=== PATIENT | male | born 1970 | race Caucasian/White ===

== ENCOUNTER 2018-03-28 08:08 | Observation (INO) | payer OTHER ==
--- NOTE | 2018-03-28 08:37 | ED ---
Palpitations / Dysrhythmia - HPI Summary HPI Summary: This pt is a 47 y/o male presenting to [facility] c/o palpitations this morning. Pt reports he has had 3 episodes of palpitations, characterized as fluttering. Pt states his palpitations began in the beginning of deer season, around January. He notes during the first episode he was clearing brush when he became overheated and felt exhausted and had fluttering. He notes his fluttering resolved on its own. His second episode was 1 week ago when he had worse fluttering that lasted about 5 minutes. Pt states he took this aspirin that day during the day and night. Today in the morning pt notes he was lying in bed and felt fluttering that is rated as "not mild" in intensity. Additionally today he had tightness in his neck and felt "ill." Today's episode lasted about 30 minutes today and had no LOC but he reports "but I close to it." Pt notes "I get the shakes a little bit." Denies hx of anxiety. He denies chest pain, SOB, nausea, vomiting, abd pain. Pt currently reports his fluttering has resolved. 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 PMHx DVT from injury on leg. Denies any past stress tests. He does not take medications on a daily basis. - History of Current Complaint Time Seen by Provider: 03/28/18 08:14 Hx Obtained From: Patient Onset/Duration: Sudden Onset, Resolved Timing: Intermittent Episodes Lasting: - one episode lasting 30 min today Severity Initially: Moderate Severity Currently: None Character: Fluttering Aggravating: Nothing Alleviating: Nothing Associated Signs & Symptoms: Negative - Allergy/Home Medications Allergies/Adverse Reactions: Allergies Allergy/AdvReac Type Severity Reaction Status Date / Time MS Hydrocodone [From Vicodin] Allergy Unknown Verified 10/18/15 10:58 Reaction Details MS Latex [Latex] Allergy Unknown Verified 10/18/15 10:58 Reaction Details MS Levofloxacin Allergy Itching Verified 10/18/15 10:58 [From Levaquin] MS Prednisone [Prednisone] Allergy Unknown Verified 10/18/15 10:58 Reaction Details MS Sulfate [Sulfate] Allergy Unknown Verified 10/18/15 10:58 Reaction Details PMH/Surg Hx/FS Hx/Imm Hx Endocrine/Hematology History: Denies: Hx Diabetes, Hx Thyroid Disease Cardiovascular History: Reports: Hx Deep Vein Thrombosis - 02/05/14 L leg Denies: Hx Congestive Heart Failure, Hx Hypertension Respiratory History: Denies: Hx Asthma, Hx Chronic Obstructive Pulmonary Disease (COPD) GI History: Reports: Other GI Disorders - Acid Reflux Denies: Hx Ulcer History: Denies: Hx Renal Disease Musculoskeletal History: Reports: Other Musculoskeletal History - L knee ligament tears - Surgical History Surgery Procedure, Year, and Place: TOES, TONSILLECTOMY. left knee repair Infectious Disease History: No Infectious Disease History: Denies: Hx Clostridium Difficile, Hx Hepatitis, Hx Human Immunodeficiency Virus (HIV), Hx of Known/Suspected MRSA, Hx Shingles, Hx Tuberculosis, Hx Known/ Suspected VRE, Hx Known/Suspected VRSA, History Other Infectious Disease, Traveled Outside the [place] in Last 30 Days - Family History Known Family History: Positive: Hypertension - Social History Alcohol Use: Occasionally Substance Use Type: Reports: None Smoking Status (MU): Never Smoked Tobacco Review of Systems Negative: Fever, Chills Positive: Palpitations. Negative: Chest Pain Negative: Shortness Of Breath Negative: Vomiting, Nausea Musculoskeletal: Other - POS: tightness in the neck All Other Systems Reviewed And Are Negative: Yes Physical Exam - Summary Physical Exam Summary: Appearance: Well appearing, no pain distress Skin: warm, dry, reflects adequate perfusion Head/face: normal Eyes: EOMI, MARY ENT: normal Neck: supple, nontender Respiratory: CTA, breath sounds present Cardiovascular: RRR, pulses symmetrical Abdomen: nontender, soft Bowel: present Musculoskeletal: normal, strength/ROM intact Neuro: normal, sensory motor intact, A&Ox3 Triage Information Reviewed: Yes Vital Signs On Initial Exam: Initial Vitals Temp Pulse Resp BP Pulse Ox 98.7 F 87 22 148/99 99 03/28/18 08:16 03/28/18 08:16 03/28/18 08:16 03/28/18 08:16 03/28/18 08:16 Vital Signs Reviewed: Yes Diagnostics - Vital Signs Vital Signs Temp Pulse Resp BP Pulse Ox 03/28/18 08:16 98.7 F 87 22 148/99 99 - Laboratory Result Diagrams: 03/28/18 08:37 03/28/18 08:37 Lab Statement: Any lab studies that have been ordered have been reviewed, and results considered in the medical decision making process. - Radiology chest XR Radiology Interpretation Completed By: Radiologist Summary of Radiographic Findings: IMPRESSION: No evidence for acute disease. Dr. Chavez has reviewed this report. - EKG 08:31 Cardiac Rate: NL - at 80 bpm EKG Rhythm: Sinus Rhythm Summary of EKG Findings: No acute changes Course/Dx - Course Assessment/Plan: Pt is a 47 y/o male presenting to [facility] c/o palpitations this morning. Pt reports he has had 3 episodes of palpitations, characterized as fluttering. Pt states his palpitations began in the beginning of , around January. He notes during the first episode he was clearing brush when he became overheated and felt exhausted and had fluttering. He notes his fluttering resolved on its own. His second episode was 1 week ago when he had worse fluttering that lasted about 5 minutes. Pt states he took this aspirin that day during the day and night. Today in the morning pt notes he was lying in bed and felt fluttering that is rated as "not mild" in intensity. Additionally today he had tightness in his neck and felt "ill." Today's episode lasted about 30 minutes today and had no LOC but he reports "but I close to it. " Pt notes "I get the shakes a little bit." Denies hx of anxiety. He denies chest pain, SOB, nausea, vomiting, abd pain. Blood work, chest XR, and EKG were obtained. Chest XR shows no evidence for acute disease. EKG shows normal sinus rhythm at 80 bpm. I discussed the case with Dr. Groves, hospitalist, who accepted the pt for admission. - Diagnoses Differential Diagnosis/HQI/PQRI: Positive: Coronary Artery Disease, Other - ni/ unsatble angina/palpitations Provider Diagnoses: Chest pain, rule out acute myocardial infarction, Palpitations - Physician Notifications Discussed Care Of Patient With: Nissa Groves - hospitalist Time Discussed With Above Provider: 11:10 Instructed by Provider To: Admit As Inpatient Discharge - Sign-Out/Discharge Documenting (check all that apply): Patient Departure - Admit to [facility] - Discharge Plan Condition: Stable Disposition: ADMITTED TO [facility] Referrals: Ebony Rob [Primary Care Provider] - - Billing Disposition and Condition Condition: STABLE Disposition: Admitted to [facility] - Attestation Statements Document Initiated by Scribe: Yes Documenting Scribe: Linsey Archer Provider For Whom Scribe is Documenting (Include Credential): Estuardo Chavez MD Scribe Attestation: I, Linsey Archer, scribed for Estuardo Chavez MD on 03/28/18 at 1213. Scribe Documentation Reviewed: Yes Provider Attestation: The documentation as recorded by the Linsey sanchez accurately reflects the service I personally performed and the decisions made by me, Estuardo Chavez MD Status of Scribe Document: Viewed
[2018-03-28 09:03] LABS: ABS Basophils 0.1 10^3/ul (0-0.2); ABS Eosinophils 0.2 10^3/ul (0-0.6); ABS Lymphocytes 1.5 10^3/ul (1.0-4.8); ABS Monocytes 0.5 10^3/ul (0-0.8); ABS Neutrophils 4.7 10^3/ul (1.5-7.7); ABS Nucleated RBC 0 10^3/ul; Eosinophil % 2.3 %; Hematocrit 47 % (42-52); Hemoglobin 16.2 g/dl (14.0-18.0); Lymphocyte % 21.9 %; Mean Corpuscular HGB Conc 34 g/dl (31-36); Mean Corpuscular Hemoglobin 29 pg (27-31); Mean Corpuscular Volume 83 fL (80-94); Mean Platelet Volume 6.8 fL (7.4-10.4); Nucleated Red Blood Cells % 0.3; Platelet Count 319 10^3/ul (150-450); Red Blood Count 5.67 10^6/ul (4.00-5.40); Red Cell Distribution Width 14 % (10.5-15)
[2018-03-28 09:18] LABS: EGFR Non-African American 88.6 (>60)
[2018-03-28] MEDS ORDERED: Acetaminophen TAB* 325 MG PO PRN (12:26)
[2018-03-28] MEDS: Enoxaparin(*) 40 MG/0.4 ML SYR SUBCUT SCH (14:29)
--- NOTE | 2018-03-28 17:08 | ECHO ---
Patient: ERIC TAN [facility] Rec#: [id number] : 1970 Date: 03/28/2018 Age: 47y Height: 196 cm / 77.2 in Weight: 114 kg / 251.3 lbs Sex: M BSA: 2.47 Room#: 446 Admit Date#: 03/28/2018 Type: Inpatient Referring: Cherry Cordero Reading: Arleth Thacker MD Binder Cutter Hand: Aditi Phipps,JHONATANCS,RDMS CC: VASU Farris Transthoracic Echocardiogram Indication: CP BP: 143/96 HR: 73 Rhythm: NSR Findings History: Palpitations, DVT/PE Technical Comments: The study quality is good. Left Ventricle: The left ventricular chamber size is mildly dilated. Mild concentric left ventricular hypertrophy is observed. There is normal left ventricular systolic function. The estimated ejection fraction is 55-60%. There is no consistent Doppler evidence of clinically significant diastolic dysfunction. Left Atrium: The left atrial chamber size is normal. Right Ventricle: The right ventricular chamber size and systolic function are within normal limits. Right Atrium: The right atrial cavity size is normal. Aortic Valve: The aortic valve is trileaflet. There is no evidence of aortic valve thickening. Systolic excursion of the aortic valve is normal. There is no evidence of aortic regurgitation. There is no evidence of aortic stenosis. Mitral Valve: The mitral valve leaflets appear normal. There is no evidence of mitral regurgitation. There is no evidence of mitral stenosis. Tricuspid Valve: The tricuspid valve leaflets are normal. There is no evidence of tricuspid valve regurgitation. Unable to estimate the right ventricular systolic pressure. Pulmonic Valve: The pulmonic valve appears normal. There is a trace pulmonic regurgitation. Pericardium: There is no significant pericardial effusion. Aorta: There is no dilatation of the ascending aorta. There is no dilatation of the aortic arch. There is mild dilatation of the aortic root. Pulmonary Artery: The main pulmonary artery appears normal. Venous: The inferior vena cava is not visualized. Conclusions Mild concentric left ventricular hypertrophy is observed. There is normal left ventricular systolic function. The estimated ejection fraction is 55-60%. The right ventricular chamber size and systolic function are within normal limits. All valves appear structurally normal with normal function. Compared with prior echo of 02/09/14, LV function is stable, RV function is stable, no longer see trace MR or TR. Aortic root dilatation not significantly changed. Measurements Name Value Normal Range RVIDd (AP) 2D 3.2 cm (0.9 - 2.6) RVDdMajor (2D) 3.7 cm (2.2 - 4.4) RAd ISD 4CH 4.9 cm (3.4 - 4.9) RA (A4C)W 4.4 cm (2.9 - 4.6) IVSd (2D) 1.1 cm (0.6 - 1) LVPWd (2D) 1.2 cm (0.6 - 1) LVIDd (2D) 5.5 cm (3.6 - 5.4) LVIDs (2D) 3.9 cm - LV FS (2D) 29 % (25 - 45) Aortic Annulus 2.7 cm (1.4 - 2.6) Ao root diameter (2D) 3.7 cm (2.1 - 3.5) Ascending Ao 3.3 cm (2.1 - 3.4) Aortic arch 3.2 cm (1.8 - 3.4) LA dimension (AP) 2D 4 cm (2.3 - 3.8) LAd ISD 4CH 6 cm (2.9 - 5.3) LA ISD 4CH W 4 cm (2.5 - 4.5) Name Value Normal Range LA ESV BP (A/L) index 27 ml/m2 - Name Value Normal Range MV E-wave Vmax 0.7 m/sec - MV deceleration time 145 msec - MV A-wave Vmax 0.5 m/sec - MV E:A ratio 1.3 ratio - P. vein S-wave Vmax 0.5 m/sec - P. vein D-wave Vmax 0.4 m/sec - P. vein S:D Vmax ratio 1.2 ratio - P. vein A-wave duration 106 msec - LV septal e' Vmax 0.06 m/sec - LV lateral e' Vmax 0.08 m/sec - LV E:e' septal ratio 11 ratio - LV E:e' lateral ratio 8 ratio - Name Value Normal Range AV Vmax 1.1 m/sec - AV VTI 20 cm - AV peak gradient 5 mmHg - AV mean gradient 2 mmHg - LVOT Vmax 0.8 m/sec - LVOT VTI 16 cm - LVOT peak gradient 2.6 mmHg - LVOT mean gradient 1 mmHg - CARLYN Vmax 0.9 m/sec - Name Value Normal Range RAP 8 mmHg - Name Value Normal Range PV Vmax 0.8 m/sec - PV peak gradient 2.6 mmHg -
--- NOTE | 2018-03-28 22:04 | HP ---
CC: VASU Farris * HISTORY AND PHYSICAL: DATE OF ADMISSION: 03/28/18 PROVIDER: Cherry Cordero NP PRIMARY CARE PROVIDER: VASU Farris ATTENDING PHYSICIAN WHILE IN THE HOSPITAL: Dr. Nissa Groves * (dictated by Cherry Cordero NP). CHIEF COMPLAINT: 1. Palpitations. 2. Chest tightness radiating to neck. HISTORY OF PRESENT ILLNESS: Mr. Haney is a 47-year-old male with no significant past medical history other than a remote history of pulmonary embolism that was provoked from a lower extremity injury, who presented to the emergency room today via EMS with complaints of palpitations. The patient reports that approximately 2 months ago he started developing palpitations, the first episode. He reports he was clearing brush around a tree stand and felt like he got overheated, he was sweating, he does report that he stayed hydrated and he felt that he has some left facial droop, right arm weakness, and extreme fatigue. He reports the activity that he was performing would not be any different than something he would generally perform without issue. He does report that after this episode he felt fatigued for approximately 2 days. He does report that approximately 2 months ago he has developed this palpitation/ fluttering in his chest and he reports that it happens at night and has progressively gotten worse. This morning, on his way to work, he had another episode of fluttering in his chest that was worse to the point that he pulled over and called EMS. States he was talking to his on the phone and he would have to pause every couple words to get a breath. He states that he had pressure and tightness in his neck and upper chest that lasted approximately 20 to 30 minutes as well as the palpitations. He does report that over the past 2 months he has had approximately 12 episodes of these palpitations with tightness in the upper chest and neck associated with nausea and shortness of breath. He also reports some increased fatigue. The patient does report he does have a moderate amount of caffeine intake daily. He does report he drinks 8 cups of coffee daily and approximately 32 ounces of water. He denies any recent illnesses or sick contacts. Due to the progressive worsening palpitations and tightness in the neck and upper chest pressure, he presented to the emergency room for further evaluation. He denies any fever or chills. Denies any edema. Denies any cough or congestion. Denies vomiting, diarrhea, or abdominal pain. Denies any gross hematuria or dysuria. Denies any focal weakness or sensory loss. Denies any visual complaints. Denies any arthralgias or myalgias, skin lesions or rashes, psychosis or anxiety. PAST MEDICAL HISTORY: Significant for: 1. Provoked DVT after lower extremity injury. 2. Provoked pulmonary embolism after lower extremity injury. PAST SURGICAL HISTORY: Tonsillectomy. HOME MEDICATIONS: None. ALLERGIES TO MEDICATIONS: None. FAMILY HISTORY: Grandparents with a history of MIs in their 70s. Grandmother with a history of diabetes adult onset and grandmother both in their 80s with ovarian cancer. SOCIAL HISTORY: Denies any tobacco. Reports occasional alcohol use. Denies any illicit drug use. He is . Surrogate decision maker in the event he is unable to make his own decisions is his , Aretha Haney. Her number is [phone]. He is a full code. REVIEW OF SYSTEMS: There was no documented fever. There has been no significant weight change. There was no double vision, no ear drainage, no rhinorrhea, no sore throat. Denies any thyroid enlargement. He does report upper chest tightness with radiation to his neck. He denies any orthopnea or nocturnal dyspnea. There was no abdominal pain. He does report some nausea with the palpitations. Denies any vomiting or diarrhea. Denies any dysuria or urinary frequency. No seizures, no loss of consciousness. No pruritus or skin ulcerations. He does report palpitations associated with shortness of breath and nausea that radiating to tightness in his upper chest and neck. A review of 14 systems was completed and all others are negative. PHYSICAL EXAMINATION GENERAL: At this time, Mr. Haney is a 47-year-old male with no significant past medical history other than a provoked DVT and PE several years ago. He appears comfortable, resting on the stretcher in the emergency room. He is not in any acute distress. VITAL SIGNS: Blood pressure 143/96, heart rate was 83, respirations 20, O2 saturation was 95% on room air, temperature was 98.7. HEENT: Head is atraumatic, normocephalic. Eyes: EOMs are intact. Sclerae anicteric and not pale. Oral mucosa appears to be moist. NECK: Supple. LUNGS: Clear to auscultation bilaterally. No wheezes, rales, or rhonchi. CARDIAC: S1, S2. Regular rate and rhythm. No murmurs, rubs, or gallops. ABDOMEN: Soft and nontender. Bowel sounds are present x4. EXTREMITIES: Pulses are +2 bilaterally. He is able to move all 4 extremities with 5/5 strength. NEUROLOGIC: He is awake, alert, and oriented x3. Speech is clear and there are no gross focal deficits. SKIN: Intact. DIAGNOSTIC STUDIES/LAB DATA: WBCs were 7.7, RBCs 5.67, hemoglobin 16.2, hematocrit was 47, platelet count was 319. INR was 0.90, APTT was 30.8, D- dimer was less than 200. Sodium 138, potassium 3.9, chloride of 109, carbon dioxide was 25, anion gap of 4, BUN was 14, creatinine 0.92, glucose was 112, lactic acid was 1.6, calcium 9.1, magnesium 2.0. ASTs were 23, ALTs were 25, alkaline phosphatase was 75. Troponin was 0.00, BNP 11. TSH 2.71. EKG showed sinus rhythm at a rate of 80. He had a chest x-ray. Radiologist's impression: No evidence of acute disease. ASSESSMENT AND PLAN: Mr. Haney is a 47-year-old male, who presented to the emergency room today with complaints of palpitations, upper chest and neck tightness. We were asked to see and evaluate him due to his upper chest tightness and palpitations. He will be admitted under observation for: 1. Palpitations/chest and neck tightness, rule out acute coronary syndrome. The patient was given 324 of aspirin via EMS prior to arrival. I will continue to trend his troponins that are currently negative. His BETTINA scale is 1 giving him a 5% risk of all-cause mortality at 14 days or needing urgent revascularization. I will order transthoracic echocardiogram and a nuclear stress test tomorrow morning. We will monitor him on telemetry overnight. I suspect that this patient will need long-term telemetry monitoring, possibly an event monitor for 30 days as these episodes do not occur on a daily basis. 2. DVT prophylaxis: He will have Lovenox 40 mg subcu daily. 3. FEN: He can have a heart-healthy, decaf okay diet. 4. Code status: He is a full code. TIME SPENT: Time spent on this admission was approximately 60 minutes, greater than half that time was spent [id number] with the patient and his obtaining my history and physical, the other half of the time was spent going over my plan of care and implementing my plan of care. I have discussed this with my attending, Dr. Nissa Groves, and she is in agreement with my plan. CHERRY CORDERO, MINILAB OPERATOR [id number]/CPS #: [id number] [place]
[2018-03-29 05:49] LABS: EGFR Non-African American 94.5 (>60)
[2018-03-29 06:00] LABS: ABS Basophils 0.1 10^3/ul (0-0.2); ABS Eosinophils 0.3 10^3/ul (0-0.6); ABS Lymphocytes 1.8 10^3/ul (1.0-4.8); ABS Monocytes 0.6 10^3/ul (0-0.8); ABS Neutrophils 4.8 10^3/ul (1.5-7.7); ABS Nucleated RBC 0 10^3/ul; Eosinophil % 3.7 %; Hematocrit 46 % (42-52); Hemoglobin 15.5 g/dl (14.0-18.0); Lymphocyte % 23.6 %; Mean Corpuscular HGB Conc 34 g/dl (31-36); Mean Corpuscular Hemoglobin 29 pg (27-31); Mean Corpuscular Volume 84 fL (80-94); Mean Platelet Volume 6.8 fL (7.4-10.4); Nucleated Red Blood Cells % 0.1; Platelet Count 317 10^3/ul (150-450); Red Blood Count 5.45 10^6/ul (4.00-5.40); Red Cell Distribution Width 14 % (10.5-15); White Blood Count 7.5 10^3/ul (3.5-10.8)
[2018-03-29 07:57] VITALS: BP 135/95
[2018-03-29] MEDS ORDERED: Aspirin 81 mg CHEW TAB* 81 MG TAB.CHEW PO SCH (09:00)
[2018-03-29] MEDS ORDERED: Atorvastatin* 40 MG TAB PO SCH (12:28)
[2018-03-29] MEDS: Enoxaparin(*) 40 MG/0.4 ML SYR SUBCUT SCH (13:50)
--- NOTE | 2018-03-31 17:39 | DS ---
CC: VASU Farris * DISCHARGE SUMMARY: DATE OF ADMISSION: 03/28/18 DATE OF DISCHARGE: 03/29/18 PRIMARY CARE PROVIDER: VASU Farris. MY ATTENDING WHILE IN THE HOSPITAL: Dr. Randa Saez.* (DICTATED BY VASU FERMIN) PRIMARY DISCHARGE DIAGNOSES: 1. Chest pain. 2. Palpitations. SECONDARY DISCHARGE DIAGNOSES: 1. History of provoked deep venous thrombosis. 2. Pulmonary embolism. STUDIES DONE WHILE IN THE HOSPITAL: Chest x-ray from 03/28/18 read as no evidence of acute disease. Electrocardiogram from 03/28/18, read as normal sinus rhythm, rate of 80, QTc of 461. No acute ST segment changes. Early repolarization in V2, V3. Normal axis. No blocks or hypertrophy. No atrial enlargement. Compared to previous EKG, there are no significant changes. Transthoracic echocardiogram from 03/28/18, read as mild concentric left ventricular hypertrophy is observed, normal left ventricular systolic function, estimated ejection fraction 55% to 60%, right ventricular chamber size and systolic function within normal limits. All valves appear structurally normal with normal function compared to echo from 02/09/14. LV function stable. RV function stable. Trace MR or TR. Aortic root dilatation not significantly changed. Nuclear medicine stress test from 03/29/18, read as small reversible apical perfusion defect which may result in small area of ischemia, peak heart rate 165 beats per minute, EF 55%, this is read as low risk. No chest pain was provoked during the stress test. EKG portion read as low risk due to EKG portion of exercise stress test. MEDICATIONS AT DISCHARGE: 1. Tylenol 650 mg p.o. q. 4 hours as needed. 2. Aspirin 81 mg p.o. daily. HOSPITAL COURSE: This is a brief summary of this patient's presentation. For more details, please see the history and physical from Cherry Cordero NP on 03/28/18. In brief, the patient is a 47-year-old male with a past medical history significant for the above who presented to the emergency department with palpitations for approximately 2 months. The patient initially had episodes of feeling fatigued. He felt that he had an episode of facial droop and right arm weakness but this passed transiently and has not recurred. The patient states that he had 2 months of palpitations mainly occurring at night and were bad enough in the morning of his admission that he called EMS. The patient drank quite a bit of coffee but had cut back before his admission to the hospital. The patient had chest pressure in his neck and upper chest. The patient was admitted to the hospital for chest pain rule out. On telemetry monitoring, the patient had no arrhythmias on telemetry. The patient had no tachycardia that might represent arrhythmia. The patient had a normal echocardiogram, negative troponins. The patient had elevated fasting blood glucoses. The patient had an elevated triglycerides, elevated cholesterol at 197 , LDL cholesterol of 81, HDL cholesterol of 23.7. The patient had a stress test read as above. It was discussed with the patient that this was low risk but the symptoms possibly represent an anginal equivalent and aspirin and statin were recommended. The patient declined to be started on statin at this time wishing to engage in lifestyle modification first. The patient was stable and amenable for discharge on 03/29/18. PHYSICAL EXAM ON THE DAY OF DISCHARGE: General: The patient is a 47-year-old male who appears stated age and sitting comfortably in bed in no acute distress. Vital Signs: At the time of discharge, temperature 97.5, pulse rate 66, respiratory rate 18, oxygen saturation 94% on room air, blood pressure 135/ 95. HEENT: Head normocephalic and atraumatic. Sclerae anicteric. No conjunctival injection. Nasal mucosa moist. Oral mucosa moist. No oropharyngeal erythema, discharge, or exudate. Neck: Supple and nontender. No lymphadenopathy. No carotid bruits auscultated. No JVD. Cardiac: Regular rate and rhythm. No clicks, murmurs, gallops, or rubs. Pulses 2+ in bilateral dorsalis pedis and posterior tibialis areas. Respiratory: Clear to auscultation bilaterally. No wheezes, rales, or rhonchi. Good air exchange bilaterally. Abdomen: Soft, nontender, nondistended. Bowel sounds present. Normoactive in all four quadrants. No hepatosplenomegaly. No abdominal bruits auscultation. No hepatojugular reflux. Genitourinary: No suprapubic or CVA tenderness. Skin: Clean, dry, and intact. No rash. Neuro: Cranial nerves II through XII were intact. No focal deficits. Alert and oriented x3. Psychiatric: Pleasant and cooperative. DISCHARGE PLAN: The patient will be discharged to home. The patient will be on aspirin 81 mg p.o. daily. The patient was recommended to be started on a statin due to the results of his he stress test and anginal symptoms he was having; however, he declined and wished to engage in lifestyle modification first. The patient's LDL cholesterol was not excessively elevated. It was discussed that this would be useful for acute plaque stabilization but he was still not interested. The patient's palpitations are concerning for atrial fibrillation especially in the setting of his possible left arm weakness; however, this has not been confirmed. This has been discussed with the patient that he should talk to his primary care provider about the possible implantation of supervisor crack off loop monitor to help assess for atrial fibrillation and anticoagulation would be indicated as needed. The patient should have a hemoglobin A1c drawn as a routine monitoring and also due to his elevated morning blood glucoses. The patient should avoid caffeine, drink plenty of fluids and exercise for weight loss as tolerated. TIME SPENT: Approximately 60 minutes was spent on the discharge of this patient , 30 of which was spent [id number] with the patient obtaining history and physical and discussing treatment plan. VASU FERMIN [id number]/[facility] #: [id number] [place]
== END 2018-03-29 14:00 | disposition home or self-care (01) ==
LOC: ED 08:08 → MEDTELE 12:26
PROVIDERS: ADMIT Internal Medicine; ATTEND Internal Medicine
DX: R07.9 Chest pain, unspecified (principal); R00.2 Palpitations; I26.99 Other pulmonary embolism without acute cor pulmonale; Z86.718 Personal history of other venous thrombosis and embolism; Z79.82 Long term (current) use of aspirin
CPT/HCPCS: 36415; 71045; 78452; 80048; 80053; 80061; 83605; 83721; 83735; 83880; 84443; 84484; 85025; 85379; 85610; 85730; 86618; 93005; 93017; 93306; 96372; 99282; A9270-GY; A9502; G0378; J1650